=== PATIENT | female | born 1985 | race Caucasian/White ===

== ENCOUNTER 2017-11-11 20:56 | Emergency (ER) | payer SELFPAY ==
[2017-11-11] MEDS ORDERED: PENICILLIN V POTASSIUM 500 MG TABLET PO ONE (21:39)
--- NOTE | 2017-11-11 21:40 | ER Document Report ---
ED General - General Chief Complaint: Toothache Stated Complaint: TOOTHACHE Time Seen by Provider: 11/11/17 21:17 Mode of Arrival: Ambulatory Information source: Patient Notes: 32-year-old female presents with complaint of left lower tooth pain that started 5 days prior to arrival. Patient states that she sustained a fracture a few years ago and has intermittently experienced pain. She states that she currently has no insurance and a history of von Willebrand's which makes her high risk for tooth extraction without oral surgery supervision. Patient denies fever, nausea. She states that she did have some leftover penicillin which she did start taking yesterday. She has been taking Tylenol without relief. She denies any difficulty swallowing. TRAVEL OUTSIDE OF THE [place] IN LAST 30 DAYS: No - HPI Onset: Last week Onset/Duration: Gradual, Persistent, Worse Quality of pain: Achy, Throbbing Severity: Moderate Pain Level: 2 Associated symptoms: denies: Earache, Fever, Nausea, Vomiting, Shortness of breath Exacerbated by: Food Relieved by: Food Similar symptoms previously: Yes Recently seen / treated by doctor: No - Related Data Allergies/Adverse Reactions: codeine [Codeine] Allergy (Verified 10/12/14 17:49) promethazine HCl [From Phenergan] Allergy (Verified 10/12/14 17:48) Past Medical History - General Information source: Patient - Social History Smoking Status: Never Smoker Frequency of alcohol use: None Drug Abuse: None Lives with: Family Family History: Reviewed & Not Pertinent Patient has suicidal ideation: No Patient has homicidal ideation: No Past Surgical History: Reports: Hx Appendectomy, Hx Gynecologic Surgery - Hysterectomy, D&C, Hx Tonsillectomy Other: Von Willebrand's - Immunizations Hx Diphtheria, Pertussis, Tetanus Vaccination: Yes Review of Systems - Review of Systems Notes: REVIEW OF SYSTEMS: CONSTITUTIONAL : Denies fever, chills, or sweats. Denies recent illness. Denies weight loss, recent hospitalizations. EENT: Denies visual changes, eye pain. Denies nasal or sinus congestion or discharge. Denies sore throat, oral lesions, difficulty swallowing. CARDIOVASCULAR: Denies chest pain. Denies palpitations. Denies lower extremity edema. RESPIRATORY: Denies cough, cold, or chest congestion. Denies shortness of breath, wheezing. GASTROINTESTINAL: Denies abdominal pain or distention. Denies nausea, vomiting , or diarrhea. Denies blood in vomitus, stools, or per rectum. Denies black, tarry stools. Denies constipation. GENITOURINARY: Denies difficulty urinating, painful urination, frequency, blood in urine, or vaginal discharge. MUSCULOSKELETAL: Denies back or neck pain or stiffness. Denies joint pain or swelling. SKIN: Denies rash, lesions or sores. HEMATOLOGIC : Denies easy bruising or bleeding. LYMPHATIC: Denies swollen glands. NEUROLOGICAL: Denies confusion or altered mental status. Denies passing out or loss of consciousness. Denies dizziness or lightheadedness. Denies headache. Denies weakness or paralysis. Denies problems difficulty with ambulation, slurred speech. Denies sensory loss, numbness, or tingling. Denies seizures. PSYCHIATRIC: Denies anxiety or stress. Denies depression, suicidal ideation, or homicidal ideation. Denies visual or auditory hallucinations. Physical Exam - Vital signs Vitals: Temp Pulse Resp BP Pulse Ox 98.6 F 95 18 112/71 99 11/11/17 21:01 11/11/17 21:01 11/11/17 21:01 11/11/17 21:01 11/11/17 21:01 Interpretation: Normal - Notes Notes: PHYSICAL EXAMINATION: GENERAL: Well-appearing, well-nourished and in no acute distress. HEAD: Atraumatic, normocephalic. EYES: Pupils equal round and reactive to light, extraocular movements intact, conjunctiva are normal. ENT: Nares patent, oropharynx clear without exudates. Moist mucous membranes. Poor dental health, multiple dental caries. Left lower molar fractured. No exposed pulp. NECK: Normal range of motion, supple without lymphadenopathy LUNGS: Breath sounds clear to auscultation bilaterally and equal. No wheezes rales or rhonchi. HEART: Regular rate and rhythm without murmurs ABDOMEN: Soft, nontender, nondistended abdomen. No guarding, no rebound. No masses appreciated. Female : deferred Musculoskeletal: Normal range of motion, no pitting or edema. No cyanosis. NEUROLOGICAL: Cranial nerves grossly intact. Normal speech, normal gait. Normal sensory, motor exams PSYCH: Normal mood, normal affect. SKIN: Warm, Dry, normal turgor, no rashes or lesions noted. Course - Re-evaluation Re-evalutation: 11/12/17 00:02 32-year-old female presents with complaint of left lower tooth pain that started 5 days prior to arrival. Patient states that she sustained a fracture a few years ago and has intermittently experienced pain. She states that she currently has no insurance and a history of von Willebrand's which makes her high risk for tooth extraction without oral surgery supervision. Patient denies fever, nausea. She states that she did have some leftover penicillin which she did start taking yesterday. She has been taking Tylenol without relief. She denies any difficulty swallowing. Patient was seen by myself upon arrival. Vital signs were reviewed. Patient is afebrile, normotensive and not hypoxic. Patient does not appear toxic or dehydrated. They are in no acute distress. Previous medical records and nursing notes reviewed. Significant findings include poor dental health, dental fracture and area of pain without associated abscess. No sublingual edema, no lymphadenopathy. Patient was provided Penicillin VK in the department and prescribed penicillin and Ultram for home. Patient provided the opportunity to ask questions, and express concerns. Discharge instructions discussed. Patient is agreeable with discharge home. Return indications explained and discussed with the patient who displays understanding. Patient encouraged to return to the emergency department immediately with any concerns. - Vital Signs Vital signs: Temp Pulse Resp BP Pulse Ox 98.0 F 83 16 108/74 100 11/11/17 22:09 11/11/17 22:09 11/11/17 22:09 11/11/17 22:09 11/11/17 22:09 Discharge - Discharge Clinical Impression: Pain, dental Broken tooth Qualifiers: Encounter type: initial encounter Fracture type: closed Qualified Code(s): S02.5XXA - Fracture of tooth (traumatic), initial encounter for closed fracture Condition: Good Disposition: HOME, SELF-CARE Instructions: Oral Narcotic Medication ([facility]), Penicillin V K ([facility]), Toothache ( [facility]) Additional Instructions: Follow up with your physician tomorrow for further care or return to the ED IMMEDIATELY if symptoms worsen or new concerns occur. If you cannot afford to follow up with your primary care physician a list of low cost clinics have been provided at the end of your discharge papers as well. Prescriptions: Hydrocodone/Acetaminophen [Cary 5-325 mg Tablet] 1 tab PO Q8H #15 tablet Penicillin V Potassium [Penicillin Vk 500 mg Tablet] 500 mg PO BID #20 tablet Referrals: [facility] [NO LOCAL MD] - Follow up as needed
[2017-11-12 03:53] VITALS: BP 106/77
== END 2017-11-11 22:45 | disposition home or self-care (01) ==
LOC: ER 20:56
DX: S02.5XXA Fracture of tooth (traumatic), initial encounter for closed fracture (principal); X58.XXXA Exposure to other specified factors, initial encounter; D68.0 Von Willebrand disease; Z59.7 Insufficient social insurance and welfare support; K08.89 Other specified disorders of teeth and supporting structures
CPT/HCPCS: 99282

== ENCOUNTER 2017-12-10 17:07 | Emergency (ER) | payer SELFPAY ==
[2017-12-10 17:19] VITALS: BP 108/70
--- NOTE | 2017-12-10 17:25 | ER Document Report ---
HPI - HPI Patient complains to provider of: Left neck pain Onset: This afternoon Onset/Duration: Sudden Pain Level: 4 Context: 32-year-old female complaining of sudden onset of left neck pain below the mandible and sore throat on that side for several hours. No headache dizziness or radiculopathy. No fever or chills. No recent illness. Associated Symptoms: None Exacerbated by: Denies Relieved by: Denies Similar symptoms previously: No Recently seen / treated by doctor: No - ROS ROS below otherwise negative: Yes Systems Reviewed and Negative: Yes All other systems reviewed and negative - REPRODUCTIVE Reproductive: DENIES: : Past Medical History - General Information source: Patient - Social History Smoking Status: Current Every Day Smoker Frequency of alcohol use: None Drug Abuse: None Lives with: Family Family History: Reviewed & Not Pertinent - Medical History Medical History: Negative Renal/ Medical History: Denies: Hx Peritoneal Dialysis Past Surgical History: Reports: Hx Appendectomy, Hx Gynecologic Surgery - Hysterectomy, D&C, Hx Tonsillectomy - Immunizations Hx Diphtheria, Pertussis, Tetanus Vaccination: Yes Vertical Provider Document - CONSTITUTIONAL Agree With Documented VS: Yes Exam Limitations: No Limitations - INFECTION CONTROL TRAVEL OUTSIDE OF THE [place] IN LAST 30 DAYS: No - HEENT HEENT: Normal ENT Exam. negative: Conjuctival Injection, Pharyngeal Erythema, Tympanic Membrane Red, Tympanic Membrane Bulging - NECK Neck: Supple, Lymphadenopathy-Left - Small lymph node that is nontender or red anterior cervical, Lymphadenopathy-Right - Small anterior cervical lymph nodes on the right that are nontender - RESPIRATORY Respiratory: Breath Sounds Normal, No Respiratory Distress - CARDIOVASCULAR Cardiovascular: Regular Rate, Regular Rhythm - MUSCULOSKELETAL/EXTREMETIES Musculoskeletal/Extremeties: CRIS, FROM - NEURO Level of Consciousness: Alert, Appropriate Motor/Sensory: No Motor Deficit, No Sensory Deficit - DERM Integumentary: No Rash Course - Vital Signs Vital signs: Temp Pulse Resp BP Pulse Ox 98.2 F 89 16 108/70 100 12/10/17 17:18 12/10/17 17:18 12/10/17 17:18 12/10/17 17:18 12/10/17 17:18 Discharge - Discharge Clinical Impression: Left neck pain Condition: Good Disposition: HOME, SELF-CARE Instructions: Acetaminophen, Warm Packs ([facility]) Additional Instructions: Warm compress Tylenol up to 4000 mg a day for pain Return to the emergency room for increased pain swelling fever or any concerns See ENT doctor if persists Referrals: MICHELLE BOSCH DO [ASSOCIATE] - Follow up as needed
[2017-12-10] MEDS ORDERED: ACETAMINOPHEN 325 MG TABLET PO ONE (17:35)
== END 2017-12-10 17:56 | disposition home or self-care (01) ==
LOC: ER 17:07
DX: M54.2 Cervicalgia (principal); R59.0 Localized enlarged lymph nodes; J02.9 Acute pharyngitis, unspecified; F17.200 Nicotine dependence, unspecified, uncomplicated
CPT/HCPCS: 99282

== ENCOUNTER 2018-02-18 09:03 | Emergency (ER) | payer SELFPAY ==
[2018-02-18 09:08] VITALS: BP 103/72
[2018-02-18] MEDS ORDERED: LIDOCAINE 2% VISCOUS SOLN 20 ML UDCUP PO ONE (09:26)
[2018-02-18] MEDS ORDERED: CLINDAMYCIN HCL 150 MG CAPSULE PO ONE (09:26)
[2018-02-18] MEDS ORDERED: ACETAMINOPHEN 325 MG TABLET PO ONE (09:26)
--- NOTE | 2018-02-18 09:29 | ER Document Report ---
HPI - HPI Patient complains to provider of: Tooth pain Onset: Other - Several days Onset/Duration: Persistent Quality of pain: Achy Pain Level: 4 Context: 32-year-old with von Willebrand disease has decayed teeth lower left first and second molar and the caring count includes the [facility] dentist tried to pull it but she started bleeding so they told her she had to go to oral surgeon. She has increased pain with it past few days. She states a azithromycin helped with the last time penicillin does not work. No fever or facial swelling Associated Symptoms: None Exacerbated by: Denies Relieved by: Denies Similar symptoms previously: Yes Recently seen / treated by doctor: No - ROS ROS below otherwise negative: Yes Systems Reviewed and Negative: Yes All other systems reviewed and negative Past Medical History - General Information source: Patient - Social History Smoking Status: Current Every Day Smoker Chew tobacco use (# tins/day): No Frequency of alcohol use: None Drug Abuse: None Lives with: Family Family History: Reviewed & Not Pertinent Patient has suicidal ideation: No Patient has homicidal ideation: No - Medical History Notes: Von Willebrand disease Renal/ Medical History: Denies: Hx Peritoneal Dialysis Past Surgical History: Reports: Hx Appendectomy, Hx Gynecologic Surgery - Hysterectomy, D&C, Hx Tonsillectomy - Immunizations Hx Diphtheria, Pertussis, Tetanus Vaccination: Yes Vertical Provider Document - CONSTITUTIONAL Agree With Documented VS: Yes Exam Limitations: No Limitations - INFECTION CONTROL TRAVEL OUTSIDE OF THE [place] IN LAST 30 DAYS: No - HEENT Notes: Decayed first and second molar lower left with gingival retraction there is no abscess - NECK Neck: Supple. negative: Lymphadenopathy-Left, Lymphadenopathy-Right - NEURO Level of Consciousness: Alert Course - Vital Signs Vital signs: Temp Pulse Resp BP Pulse Ox 98.6 F 100 14 103/72 100 02/18/18 09:08 02/18/18 09:08 02/18/18 09:08 02/18/18 09:08 02/18/18 09:08 Discharge - Discharge Clinical Impression: dental pain and decay Condition: Good Disposition: HOME, SELF-CARE Instructions: [facility], Clindamycin ([facility]), Toothache ([facility]), Topical Lidocaine ([facility]), Acetaminophen Additional Instructions: Tylenol up to 4000 mg a day for pain Lidocaine topically to numb the area Clindamycin 3 times a day Oral surgery referral given to you Prescriptions: Clindamycin HCl [Cleocin 150 mg Capsule] 300 mg PO TID #42 capsule Referrals: VERNA CLIFTON DDS [ACTIVE STAFF] - Follow up as needed
== END 2018-02-18 09:42 | disposition home or self-care (01) ==
LOC: ER 09:03
DX: K08.89 Other specified disorders of teeth and supporting structures (principal); K02.9 Dental caries, unspecified; F17.200 Nicotine dependence, unspecified, uncomplicated
CPT/HCPCS: 99282; J3490